=== PATIENT | female | born 1930 | race Caucasian/White ===

== ENCOUNTER 2018-11-21 11:15 | Emergency (ER) | payer MEDICARE, BC ==
[~2018-11-21] VITALS: Ht 167.6 cm; Wt 83.9 kg
[2018-11-21 12:15] LABS: ABSOLUTE EOSINOPHILS 0.1 thou/uL (0.0-0.7); ABSOLUTE LYMPHOCYTES 1.2 thou/uL (0.8-5.3); ABSOLUTE MONOCYTES 0.7 thou/uL (0.0-1.2); ABSOLUTE NEUTROPHILS 4.9 thou/uL (1.6-8.1); BASOPHILS 0.7 %; EOSINOPHILS 1.6 %; HEMATOCRIT 38.1 % (37.0-47.0); HEMOGLOBIN 13.4 gm/dL (12.0-15.0); MCH 34.6 pg (26.0-34.0); MCHC 35.2 g/dL (28.0-37.0); MCV 98.2 fL (80.0-100.0); MONOCYTES 9.7 %; MPV 7.8 fl. (7.2-11.1); NUCLEATED RBCS 0 /100WBC; PLATELET COUNT* 199 thou/uL (150-400); RBC 3.88 mil/uL (4.20-5.00); RDW-CV 12.9 % (10.5-14.5); WBC 6.9 thou/uL (4.0-11.0)
[2018-11-21 12:30] LABS: CALCIUM 8.4 mg/dL (8.5-10.1); CREATININE 0.8 mg/dL (0.6-1.3); POTASSIUM 3.9 mmol/L (3.5-5.1)
[2018-11-21] MEDS ORDERED: DILANTIN100 MG PO (12:31)
[2018-11-21] MEDS ORDERED: CRANBERRY200 MG PO (12:31)
[2018-11-21] MEDS ORDERED: PROTONIX40 M1 PO (12:31)
[2018-11-21] MEDS ORDERED: ASPIR 8181 MG PO (12:31)
[2018-11-21] MEDS ORDERED: GLUCOSAMINE HC500 MG PO (12:31)
[2018-11-21] MEDS ORDERED: MIRALAX17 GM PO (12:31)
[2018-11-21] MEDS ORDERED: PROBIOTIC1 EAC1 PO (12:32)
[2018-11-21 12:34] LABS: ALBUMIN 3.4 g/dL (3.4-5.0); TOTAL BILIRUBIN 0.4 mg/dL (<0.1-1.0); TOTAL PROTEIN 7.3 g/dL (6.4-8.2)
[2018-11-21 14:12] VITALS: BP 132/74
--- NOTE | 2018-11-21 18:06 | EKG ---
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 : [id number] Requested By: Janet Ruiz Order Number: [id number] MD: Flip Hernandez Measurements Intervals Seale Rate: 80 P: 31 WY: 174 QRS: 23 QRSD: 105 T: 43 QT: 368 QTc: 425 Interpretive Statements Sinus rhythm Abnormal R-wave progression, early transition Borderline T abnormalities, anterior leads No previous ECG available for comparison Electronically Signed On 11-21-2018 18:06:22 CDT by Flip Hernandez [email or web address] <ELECTRONICALLY SIGNED> By: Gladys Hernandez MD, [facility] 11/21/18 1806 26 26 Gladys Hernandez MD, [facility] /EPI
== END 2018-11-21 14:12 | disposition home or self-care (01) ==
LOC: M.ERS 11:15
PROVIDERS: Personal Emergency Response Attendant
DX: S70.01XA Contusion of right hip, initial encounter (principal); S80.01XA Contusion of right knee, initial encounter; Z88.6 Allergy status to analgesic agent; Z88.1 Allergy status to other antibiotic agents; Z91.041 Radiographic dye allergy status; Z88.8 Allergy status to other drugs, medicaments and biological substances; Z88.2 Allergy status to sulfonamides; W18.39XA Other fall on same level, initial encounter; Y92.009 Unspecified place in unspecified non-institutional (private) residence as the place of occurrence of the external cause; Y99.0 Civilian activity done for income or pay; Y99.8 Other external cause status